=== PATIENT | female | born 1975 | race Caucasian/White ===

== ENCOUNTER 2017-11-01 17:52 | Inpatient (IN) | payer MEDICAID ==
[~2017-11-01] VITALS: Ht 167.6 cm; Wt 73.6 kg
[~2017-11-01 17:52] MED LIST: HUMIBIDDM PO; OSEL75 PO
[2017-11-01] MEDS ORDERED: ACETAMINOPHEN 325 MG TAB PO PRN (19:15)
[2017-11-01] MEDS ORDERED: MAGNESIUM HYDROXIDE SUSP 30 ML CUP PO PRN (19:15)
[2017-11-01] MEDS ORDERED: ONDANSETRON HCL 4 MG/2 ML VIAL IVP PRN (19:15)
[2017-11-01] MEDS ORDERED: SENNOSIDES 8.6 MG TAB PO PRN (19:15)
[2017-11-01] MEDS ORDERED: RESP: ALBUTEROL 2.5 MG/IPRATROPIUM 0.5 MG NEB (PRN) NEB (19:15)
[2017-11-01] MEDS ORDERED: SODIUM CHLORIDE 0.9% FLUSH 10 ML FLUSH IV FLUSH PRN (19:15)
[2017-11-01] MEDS ORDERED: ACETAMINOPHEN/HYDROcodone 325 MG/5 MG TAB PO PRN (19:15)
[2017-11-01] MEDS ORDERED: LACTULOSE SYRUP 20 GM/30 ML CUP PO PRN (19:15)
[2017-11-01] MEDS ORDERED: MORPHINE SULFATE 2 MG/ML INJ IV PUSH PRN (19:15)
[2017-11-01] MEDS ORDERED: BISACODYL 10 MG SUPP RECTAL PRN (19:15)
[2017-11-01] MEDS ORDERED: DEXTROMETHORPHAN GUAIFENESIN PO PRN (19:30)
[2017-11-01 20:00] VITALS: BP 137/86; PULSE 89; RESP 18; TEMP 99; O2SAT 96
[2017-11-01] MEDS: DOCUSATE SODIUM 50 MG/SENNA 8.6 MG TAB PO SCH (21:58)
[2017-11-01] MEDS: SODIUM CHLORIDE 0.9% FLUSH 10 ML FLUSH IV FLUSH SCH (21:58)
[2017-11-01] MEDS: SODIUM CHLOR 0.9% 1000 ML INJ 1,000 ML IV SCH (22:00)
--- NOTE | 2017-11-01 22:38 | HHI.HP ---
HPI Service [facility] Primary Care Physician Christina Lee MD Admission Diagnosis Pneumonia; influenza a infection 10/26/17 . Diagnoses: (1) Pneumonia Chief Complaint: cough, shortness of breath, fatigue Travel History International Travel<30 Days: No Contact w/Intl Traveler <30 Da: No History of Present Illness Mrs. Rivero is a pleasant 41 y/o female with a history of right breast cancer treated with mastectomy, chemotherapy, and radiation who presented to the ED in [place] for evaluation of persistent cough and shortness of breath following Influenza A infection diagnosed 10/26. Chest xray showed possible left lower lung pneumonia and the patient was transferred to [facility] for further medical management. The patient is seen in her hospital room. She reports persistent cough that is worse with movement and conversation. The cough is worse at night causing patient to be unable to sleep and she reports exhaustion and fatigue as a result. She states that she feels short of breath with respirations feeling very "shallow". She reports tactile fever, warm feelings alternating with cold , and diaphoresis. She denies chest pain, nausea, vomiting, or diarrhea. She completed course of Tamiflu with no improvement in her flu symptoms. 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 Review of Systems Except as stated in HPI: all other systems reviewed are Neg Past Family Social History Past Medical History Right breast cancer s/p radiation/chemo/mastectomy 2015/2016 Hypertension Anemia requiring iron supplement . Past Surgical History Right breast lumpectomy 2000 Right breast mastectomy 2016 Right breast reconstruction 02/2017 C Section x 3 BTL D and C . Reported Medications . Reported Meds & Active Scripts Active Mucinex DM (Dextromethorphan-Guaifenesin) 30-600 Mg Tab 1 Tab PO BID PRN Tamiflu (Oseltamivir Phosphate) 75 Mg Cap 75 Mg PO BID 5 Days Allergies: Coded Allergies: No Known Allergies (Unverified , 10/26/17) Family History Mother with thyroid disease Family history of DM . Social History Tobacco: denies ever smoking Alcohol: denies Illicit Drugs: denies . Physical Exam Vital Signs Vital Signs Date Time Temp Pulse Resp B/P (MAP) Pulse Ox O2 Delivery O2 Flow Rate FiO2 11/01/17 20:00 99.0 89 18 137/86 (103) 96 Physical Exam GENERAL: Well-nourished, well-developed patient in no acute distress. INTEGUMENTARY: Warm and dry. HEAD: Normocephalic. EYES: No scleral icterus. No injection or drainage. NECK: Supple, trachea midline. No JVD. CARDIOVASCULAR: Regular rate and rhythm without murmurs, gallops, or rubs. Extremities without cyanosis, or edema. RESPIRATORY: Breath sounds with left lower lobe crackles and fine, few crackles also noted on left. No accessory muscle use. GASTROINTESTINAL: Abdomen soft, non-tender, nondistended. MUSCULOSKELETAL: Muscle strength equal bilaterally. No obvious deformities. NEUROLOGICAL: Awake, alert, and oriented x 3. Non-focal. Laboratory Laboratory Tests Test 11/01/17 16:26 11/01/17 17:32 White Blood Count 15.5 TH/MM3 Red Blood Count 3.66 MIL/MM3 Hemoglobin 9.8 GM/DL Hematocrit 30.5 % Mean Corpuscular Volume 83.3 FL Mean Corpuscular Hemoglobin 26.8 PG Mean Corpuscular Hemoglobin Concent 32.1 % Red Cell Distribution Width 14.7 % Platelet Count 326 TH/MM3 Mean Platelet Volume 10.1 FL Immature Granulocyte % (Auto) 0.6 % Neutrophils (%) (Auto) 78.6 % Lymphocytes (%) (Auto) 12.7 % Monocytes (%) (Auto) 7.5 % Eosinophils (%) (Auto) 0.5 % Basophils (%) (Auto) 0.1 % Immature Granulocyte # (Auto) 0.1 TH/MM3 Neutrophils # (Auto) 12.2 TH/MM3 Lymphocytes # (Auto) 2.0 TH/MM3 Monocytes # (Auto) 1.2 TH/MM3 Eosinophils # (Auto) 0.1 TH/MM3 Basophils # (Auto) 0.0 TH/MM3 CBC Comment DIFF FINAL Differential Comment Blood Urea Nitrogen 5 MG/DL Creatinine 0.60 MG/DL Random Glucose 125 MG/DL Total Protein 8.1 GM/DL Albumin 3.1 GM/DL Calcium Level 8.8 MG/DL Alkaline Phosphatase 115 U/L Aspartate Amino Transf (AST/SGOT) 41 U/L Alanine Aminotransferase (ALT/SGPT) 72 U/L Total Bilirubin 0.3 MG/DL Sodium Level 138 MEQ/L Potassium Level 4.0 MEQ/L Chloride Level 102 MEQ/L Carbon Dioxide Level 30.0 MEQ/L Anion Gap 6 MEQ/L Estimat Glomerular Filtration Rate 110 ML/MIN . Imaging Last Impressions Chest X-Ray 11/01/17 1507 Signed Impressions: Service Date/Time: Wednesday, November 01, 2017 16:29 - CONCLUSION: Mild inferior left lung base atelectasis versus consolidation. Galindo Johnson MD . Caprini VTE Risk Assessment Caprini VTE Risk Assessment: Mod/High Risk (score >= 2) Caprini Risk Assessment Model Point Value = 1 Point Value = 2 Point Value = 3 Point Value = 5 Age 41-60 Minor surgery BMI > 25 kg/m2 Swollen legs Varicose veins or History of unexplained or recurrent spontaneous Oral contraceptives or hormone replacement Sepsis (< 1 month) Serious lung disease, including pneumonia (< 1 month) Abnormal pulmonary function Acute myocardial infarction Congestive heart failure (< 1 month) History of inflammatory bowel disease Medical patient at bed rest Age 61-74 Arthroscopic surgery Major open surgery (> 45 min) Laparoscopic surgery (> 45 min) Malignancy Confined to bed (> 72 hours) Immobilizing plaster cast Central venous access Age >= 75 History of VTE Family history of VTE Factor V Leiden Prothrombin [id number] Lupus anticoagulant Anticardiolipin antibodies Elevated serum homocysteine Heparin-induced thrombocytopenia Other congenital or acquired thrombophilia Stroke (< 1 month) Elective arthroplasty Hip, pelvis, or leg fracture Acute spinal cord injury (< 1 month) Prophylaxis Regimen Total Risk Factor Score Risk Level Prophylaxis Regimen 0-1 Low Early ambulation 2 Moderate Order ONE of the following: *Sequential Compression Device (SCD) *Heparin 5000 units SQ BID 3-4 Higher Order ONE of the following medications: *Heparin 5000 units SQ TID *Enoxaparin/Lovenox 40 mg SQ daily (WT < 150 kg, CrCl > 30 mL/min) *Enoxaparin/Lovenox 30 mg SQ daily (WT < 150 kg, CrCl > 10-29 mL/min) *Enoxaparin/Lovenox 30 mg SQ BID (WT < 150 kg, CrCl > 30 mL/min) AND/OR *Sequential Compression Device (SCD) 5 or more Highest Order ONE of the following medications: *Heparin 5000 units SQ TID (Preferred with Epidurals) *Enoxaparin/Lovenox 40 mg SQ daily (WT < 150 kg, CrCl > 30 mL/min) *Enoxaparin/Lovenox 30 mg SQ daily (WT < 150 kg, CrCl > 10-29 mL/min) *Enoxaparin/Lovenox 30 mg SQ BID (WT < 150 kg, CrCl > 30 mL/min) AND *Sequential Compression Device (SCD) Assessment and Plan Problem List: (1) Pneumonia ICD Code: J18.9 - Pneumonia, unspecified organism Assessment and Plan Left lower lobe pneumonia - Exam and chest x-ray c/w left lower lobe pneumonia - Antibiotics: IV Rocephin and Azithromycin - Duonebs q6h ATC and q4h PRN sob/wheezing - Incentive Spirometry - IVF hydration with NS at 100 cc/hr - Robitussin DM PRN Anemia with history of Iron Deficiency - Hgb 9.8, HCT 30.5 on admission - check iron profile - recheck cbc in a.m. and follow results Insomnia - try Ambien 5 mg p.o. at bedtime - Will order PRN if effective in relieving symptoms DVT prophylaxis - Heparin 5000 units subq q8h . Discussed Condition With Dr. Bhatia, RN, and patient . Physician Certification 2 Midnight Certification Type: Admission for Inpatient Services Order for Inpatient Services The services are ordered in accordance with Medicare regulations or non- Medicare payer requirements, as applicable. In the case of services not specified as inpatient-only, they are appropriately provided as inpatient services in accordance with the 2-midnight benchmark. Estimated LOS (days): 2 days is the estimated time the patient will need to remain in the hospital, assuming treatment plan goals are met and no additional complications. Post-Hospital Plan: Home Problem Qualifiers (1) Pneumonia: Qualified Codes: J11.00 - Influenza due to unidentified influenza virus with unspecified type of pneumonia Amber Bower Nov 01, 2017 22:38
[2017-11-01] MEDS ORDERED: ZOLPIDEM TARTRATE 5 MG TAB PO ONE (23:00)
[2017-11-01] MEDS: cefTRIAXone INJ 1,000 MG in SODIUM CHLORIDE 0.9% INJ 100 ML IV SCH (23:14)
[2017-11-01 23:46] VITALS: PULSE 74
[2017-11-02] VITALS (11 sets, daily range): BP systolic 130–149; BP diastolic 70–81; PULSE 71–107; RESP 17–20; TEMP 98.2–98.7; O2SAT 97–99
[2017-11-02] MEDS: AZITHROMYCIN INJ 500 MG in SODIUM CHLOR 0.9% 250 ML INJ 250 ML IV SCH ×2
[2017-11-02] MEDS ORDERED: SODIUM CHLORIDE 0.9% FLUSH 10 ML FLUSH IVF PRN (00:45)
[2017-11-02] MEDS: RESP: ALBUTEROL 2.5 MG/IPRATROPIUM 0.5 MG NEB (SCH) INH ×4 (04:47→20:20)
[2017-11-02 07:40] LABS: AUTOMATED NEUTROPHIL # 9.7 TH/MM3 (1.8-7.7); BASOPHIL % 0.4 % (0.0-2.0); HEMATOCRIT 29.5 % (35.0-46.0); LYMPH % 5.9 % (9.0-44.0); LYMPHOCYTE # 0.6 TH/MM3 (1.0-4.8); MEAN CELL VOLUME 81.1 FL (80.0-100.0); MEAN CORPUSCULAR HEMOGLOBIN 27.3 PG (27.0-34.0); MEAN CORPUSCULAR HGB CONC 33.7 % (32.0-36.0); MEAN PLATELET VOLUME 8.6 FL (7.0-11.0); MONO % 3.3 % (0.0-8.0); MONOCYTE # 0.4 TH/MM3 (0-0.9); NEUT % 90.4 % (16.0-70.0); PLATELET COUNT 290 TH/MM3 (150-450); RED BLOOD COUNT 3.64 MIL/MM3 (4.00-5.30); WHITE BLOOD COUNT 10.8 TH/MM3 (4.0-11.0)
[2017-11-02 07:47] LABS: ALBUMIN 2.8 GM/DL (3.4-5.0); AST (GOT) 41 U/L (15-37); BICARBONATE 26.7 MEQ/L (21.0-32.0); BLOOD UREA NITROGEN 8 MG/DL (7-18); CALCIUM 8.9 MG/DL (8.5-10.1); CHLORIDE 103 MEQ/L (98-107); CREATININE 0.48 MG/DL (0.50-1.00); GLOMERULAR FILTRATION RATE 142 ML/MIN (>89); GLUCOSE,RANDOM 145 MG/DL (74-106); SODIUM (NA) 137 MEQ/L (136-145)
[2017-11-02 07:48] LABS: ALT (GPT) 72 U/L (10-53)
[2017-11-02 07:49] LABS: IRON (FE) 47 MCG/DL (50-170); TOTAL BILIRUBIN ADULT 0.2 MG/DL (0.2-1.0); TOTAL IRON BINDING CAPACITY 235 MCG/DL (250-450); TOTAL PROTEIN 7.7 GM/DL (6.4-8.2)
[2017-11-02 07:50] LABS: ALKALINE PHOSPHATASE 107 U/L (45-117)
[2017-11-02] MEDS: DOCUSATE SODIUM 50 MG/SENNA 8.6 MG TAB PO SCH ×2 (08:13→21:00)
[2017-11-02] MEDS: SODIUM CHLORIDE 0.9% FLUSH 10 ML FLUSH IV FLUSH SCH ×2 (08:14→21:00)
--- NOTE | 2017-11-02 09:58 | HHI.PR ---
Subjective Remarks This is a pleasant 41 y/o Female with history of Right breast cancer treated with mastectomy, chemotherapy and radiation, who came to ER at [place] with cough and SOB, following Influenza A infection diagnosed 10/26/17, CXR showed possible left lower lung pneumonia, she has Hypertension, Anemia requiring iron supplement. stable in her bedroom, continue present care. improving condition. Objective Vital Signs Date Time Temp Pulse Resp B/P (MAP) Pulse Ox O2 Delivery O2 Flow Rate FiO2 11/02/17 09:17 98.4 91 20 149/81 (103) 97 11/02/17 04:00 98.3 81 17 137/79 (98) 97 11/02/17 03:46 71 11/02/17 00:00 98.3 86 18 134/76 (95) 97 11/01/17 23:46 74 11/01/17 20:00 99.0 89 18 137/86 (103) 96 I/O 11/01/17 11/01/17 11/01/17 11/02/17 11/02/17 11/02/17 07:00 15:00 23:00 07:00 15:00 23:00 Intake Total 240 ml Balance 240 ml Intake Oral 240 ml # Voids 3 Result Diagram: 11/02/17 0615 11/02/17 0655 Imaging CXR Left lung base atelectasis or consolidation Procedures None Other Results Laboratory Tests Test 11/02/17 06:15 11/02/17 06:55 White Blood Count 10.8 TH/MM3 Red Blood Count 3.64 MIL/MM3 Hemoglobin 10.0 GM/DL Hematocrit 29.5 % Mean Corpuscular Volume 81.1 FL Mean Corpuscular Hemoglobin 27.3 PG Mean Corpuscular Hemoglobin Concent 33.7 % Red Cell Distribution Width 15.0 % Platelet Count 290 TH/MM3 Mean Platelet Volume 8.6 FL Neutrophils (%) (Auto) 90.4 % Lymphocytes (%) (Auto) 5.9 % Monocytes (%) (Auto) 3.3 % Eosinophils (%) (Auto) 0.0 % Basophils (%) (Auto) 0.4 % Neutrophils # (Auto) 9.7 TH/MM3 Lymphocytes # (Auto) 0.6 TH/MM3 Monocytes # (Auto) 0.4 TH/MM3 Eosinophils # (Auto) 0.0 TH/MM3 Basophils # (Auto) 0.0 TH/MM3 CBC Comment DIFF FINAL Differential Comment Blood Urea Nitrogen 8 MG/DL Creatinine 0.48 MG/DL Random Glucose 145 MG/DL Total Protein 7.7 GM/DL Albumin 2.8 GM/DL Calcium Level 8.9 MG/DL Alkaline Phosphatase 107 U/L Aspartate Amino Transf (AST/SGOT) 41 U/L Alanine Aminotransferase (ALT/SGPT) 72 U/L Total Bilirubin 0.2 MG/DL Sodium Level 137 MEQ/L Potassium Level 4.2 MEQ/L Chloride Level 103 MEQ/L Carbon Dioxide Level 26.7 MEQ/L Anion Gap 7 MEQ/L Estimat Glomerular Filtration Rate 142 ML/MIN Iron Level 47 MCG/DL Total Iron Binding Capacity 235 MCG/DL Percent Iron Saturation 20.0 % Objective Remarks GENERAL: Well-nourished, well-developed patient in no acute distress. INTEGUMENTARY: Warm and dry. HEAD: Normocephalic. EYES: No scleral icterus. No injection or drainage. NECK: Supple, trachea midline. No JVD. CARDIOVASCULAR: Regular rate and rhythm without murmurs, gallops, or rubs. Extremities without cyanosis, or edema. RESPIRATORY: Breath sounds with left lower lobe crackles and fine, few crackles also noted on left. No accessory muscle use. GASTROINTESTINAL: Abdomen soft, non-tender, nondistended. MUSCULOSKELETAL: Muscle strength equal bilaterally. No obvious deformities. NEUROLOGICAL: Awake, alert, and oriented x 3. Non-focal. Medications and IVs Current Medications Medications (Trade) Dose Ordered Sig/Kirill Route Start Time Stop Time Status Last Admin Sodium Chloride 1,000 ml @ 100 mls/hr Q10H IV 11/01/17 19:10 11/01/17 22:00 (NS Flush) 2 ml UNSCH PRN IV FLUSH 11/01/17 19:15 (NS Flush) 2 ml BID IV FLUSH 11/01/17 21:00 11/01/17 21:58 (Zofran Inj) 4 mg Q6H PRN IVP 11/01/17 19:15 (Tylenol) 650 mg Q6H PRN PO 11/01/17 19:15 (Deloit 5-325 Mg) 1 tab Q4H PRN PO 11/01/17 19:15 (Morphine Inj) 2 mg Q3H PRN IV PUSH 11/01/17 19:15 (Sherine-Colace) 1 tab BID PO 11/01/17 21:00 11/02/17 08:13 (Milk Of Magnesia Liq) 30 ml Q12H PRN PO 11/01/17 19:15 (Senokot) 17.2 mg Q12H PRN PO 11/01/17 19:15 (Dulcolax Supp) 10 mg DAILY PRN RECTAL 11/01/17 19:15 (Lactulose Liq) 30 ml DAILY PRN PO 11/01/17 19:15 (Duoneb Neb) 1 ampule Q4HR NEB PRN NEB 11/01/17 19:15 Patient Own Medication PT OWN MED: (Dextromethorphan-Gua... BID PRN PO 11/01/17 19:30 Future Hold Ceftriaxone Sodium 1000 mg/ Sodium Chloride 100 ml @ 200 mls/hr Q24H IV 11/01/17 23:00 11/01/17 23:14 Azithromycin 500 mg/Sodium Chloride 250 ml @ 250 mls/hr Q24H IV 11/01/17 23:00 11/02/17 00:00 (Duoneb Neb) 1 ampule Q6HR NEB INH 11/02/17 04:00 11/02/17 04:47 (Heparin Central Flush) 500 units UNSCH IV FLUSH 11/02/17 00:45 (NS Flush) 5 ml UNSCH PRN IVF 11/02/17 00:45 (Heparin Central Flush) 250 units UNSCH PRN IV FLUSH 11/02/17 00:45 11/02/17 06:18 A/P Assessment and Plan (1) Pneumonia ICD Code: J18.9 - Pneumonia, unspecified organism Assessment and Plan Left lower lobe pneumonia - Exam and chest x-ray c/w left lower lobe pneumonia - Antibiotics: IV Rocephin and Azithromycin - Duonebs q6h ATC and q4h PRN sob/wheezing - Incentive Spirometry - IVF hydration with NS at 100 cc/hr - Robitussin DM PRN Anemia with history of Iron Deficiency - Hgb 9.8, HCT 30.5 on admission Insomnia - try Ambien 5 mg p.o. at bedtime - Will order PRN if effective in relieving symptoms DVT prophylaxis - Heparin 5000 units subq q8h . Discussed Condition With patient and nurse continue present care. Discharge Planning Expected by tomorrow. Massimo Fernandez MD Nov 02, 2017 09:58
[2017-11-02] MEDS ORDERED: LEVOFLOXACIN 750 MG PREMIX INJ 150 ML IV SCH ×2 (20:00)
[2017-11-02] MEDS: SODIUM CHLOR 0.9% 1000 ML INJ 1,000 ML IV SCH (21:50)
[2017-11-02] MEDS: cefTRIAXone INJ 1,000 MG in SODIUM CHLORIDE 0.9% INJ 100 ML IV SCH (23:34)
[2017-11-03] VITALS (7 sets, daily range): BP systolic 131–145; BP diastolic 73–97; PULSE 70–86; RESP 18–19; TEMP 97.4–98.5; O2SAT 95–99
[2017-11-03] MEDS: AZITHROMYCIN INJ 500 MG in SODIUM CHLOR 0.9% 250 ML INJ 250 ML IV SCH (00:22)
[2017-11-03] MEDS: SODIUM CHLOR 0.9% 1000 ML INJ 1,000 ML IV SCH ×3 (00:27→11:10)
[2017-11-03] MEDS: RESP: ALBUTEROL 2.5 MG/IPRATROPIUM 0.5 MG NEB (SCH) INH ×2 (03:44→09:14)
[2017-11-03] MEDS: SODIUM CHLORIDE 0.9% FLUSH 10 ML FLUSH IV FLUSH SCH (08:08)
[2017-11-03] MEDS: DOCUSATE SODIUM 50 MG/SENNA 8.6 MG TAB PO SCH (08:08)
--- NOTE | 2017-11-03 10:36 | RADRPT ---
EXAM DATE/TIME: 11/03/2017 10:07 [facility] COMPARISON: No previous studies available for comparison. INDICATIONS : Short of Breath MEDICAL HISTORY : Hypertension. Carcinoma, breast. SURGICAL HISTORY : Mastectomy, right. Port placement ENCOUNTER: Subsequent ACUITY: 3 days PAIN SCORE: 0/10 LOCATION: chest FINDINGS: PA and lateral views of the chest demonstrate left lower lobe infiltrate. Right lung relatively clear . Heart normal in size. Left-sided [id number]-[id number] catheter with tip in the SVC. Clips in the right axi lla. The cardiomediastinal contours are unremarkable. Osseous structures are intact. CONCLUSION: Left basilar infiltrate. Chase Robb MD on November 03, 2017 at 10:33 Board Certified Radiologist. This report was verified electronically.
[2017-11-03] MEDS ORDERED: LEVA750T9 PO (12:10)
--- NOTE | 2017-11-03 12:14 | HHI.PR ---
Subjective Remarks This is a pleasant 41 y/o Female with history of Right breast cancer treated with mastectomy, chemotherapy and radiation, who came to ER at [place] with cough and SOB, following Influenza A infection diagnosed 10/26/17, CXR showed possible left lower lung pneumonia, she has Hypertension, Anemia requiring iron supplement. stable in her bedroom, continue present care. improving condition. 11/03: Seen in her bedroom, new CXR taken and showing left lower lung infiltrate , but improving clinically will discharge home and follow as outpatient by PCP will continue Levaquin for 5 days. no nausea, vomit or diarrhea. Objective Vital Signs Date Time Temp Pulse Resp B/P (MAP) Pulse Ox O2 Delivery O2 Flow Rate FiO2 11/03/17 09:14 99 21 11/03/17 08:43 97.4 85 19 145/97 (113) 95 11/03/17 04:00 98.1 79 18 131/76 (94) 95 11/03/17 04:00 75 11/03/17 00:00 70 11/03/17 00:00 98.0 78 18 134/73 (93) 96 11/02/17 20:22 99 21 11/02/17 20:00 98.2 86 18 132/72 (92) 97 11/02/17 20:00 86 11/02/17 16:13 98.3 84 20 134/70 (91) 97 11/02/17 16:00 80 I/O 11/02/17 11/02/17 11/02/17 11/03/17 11/03/17 11/03/17 07:00 15:00 23:00 07:00 15:00 23:00 Intake Total 240 ml 720 ml 1880 ml Balance 240 ml 720 ml 1880 ml Intake Oral 240 ml 720 ml IV Total 1880 ml # Voids 3 4 4 # Bowel Movements 1 Result Diagram: 11/02/17 0615 11/02/17 0655 Imaging Last Impressions Chest X-Ray 11/03/17 0000 Signed Impressions: Service Date/Time: Friday, November 03, 2017 10:07 - CONCLUSION: Left basilar infiltrate. Chase Robb MD Procedures None Other Results Laboratory Tests Test 11/02/17 06:15 11/02/17 06:55 White Blood Count 10.8 TH/MM3 Red Blood Count 3.64 MIL/MM3 Hemoglobin 10.0 GM/DL Hematocrit 29.5 % Mean Corpuscular Volume 81.1 FL Mean Corpuscular Hemoglobin 27.3 PG Mean Corpuscular Hemoglobin Concent 33.7 % Red Cell Distribution Width 15.0 % Platelet Count 290 TH/MM3 Mean Platelet Volume 8.6 FL Neutrophils (%) (Auto) 90.4 % Lymphocytes (%) (Auto) 5.9 % Monocytes (%) (Auto) 3.3 % Eosinophils (%) (Auto) 0.0 % Basophils (%) (Auto) 0.4 % Neutrophils # (Auto) 9.7 TH/MM3 Lymphocytes # (Auto) 0.6 TH/MM3 Monocytes # (Auto) 0.4 TH/MM3 Eosinophils # (Auto) 0.0 TH/MM3 Basophils # (Auto) 0.0 TH/MM3 CBC Comment DIFF FINAL Differential Comment Blood Urea Nitrogen 8 MG/DL Creatinine 0.48 MG/DL Random Glucose 145 MG/DL Total Protein 7.7 GM/DL Albumin 2.8 GM/DL Calcium Level 8.9 MG/DL Alkaline Phosphatase 107 U/L Aspartate Amino Transf (AST/SGOT) 41 U/L Alanine Aminotransferase (ALT/SGPT) 72 U/L Total Bilirubin 0.2 MG/DL Sodium Level 137 MEQ/L Potassium Level 4.2 MEQ/L Chloride Level 103 MEQ/L Carbon Dioxide Level 26.7 MEQ/L Anion Gap 7 MEQ/L Estimat Glomerular Filtration Rate 142 ML/MIN Iron Level 47 MCG/DL Total Iron Binding Capacity 235 MCG/DL Percent Iron Saturation 20.0 % Objective Remarks GENERAL: Well-nourished, well-developed patient in no acute distress. INTEGUMENTARY: Warm and dry. HEAD: Normocephalic. EYES: No scleral icterus. No injection or drainage. NECK: Supple, trachea midline. No JVD. CARDIOVASCULAR: Regular rate and rhythm without murmurs, gallops, or rubs. Extremities without cyanosis, or edema. RESPIRATORY: Breath sounds clear to auscultation bilateral, no wheezing or crackles. GASTROINTESTINAL: Abdomen soft, non-tender, nondistended. MUSCULOSKELETAL: Muscle strength equal bilaterally. No obvious deformities. NEUROLOGICAL: Awake, alert, and oriented x 3. Non-focal. Medications and IVs Current Medications Medications (Trade) Dose Ordered Sig/Kirill Route Start Time Stop Time Status Last Admin Sodium Chloride 1,000 ml @ 100 mls/hr Q10H IV 11/01/17 19:10 11/03/17 08:08 (NS Flush) 2 ml UNSCH PRN IV FLUSH 11/01/17 19:15 (NS Flush) 2 ml BID IV FLUSH 11/01/17 21:00 11/03/17 08:08 (Zofran Inj) 4 mg Q6H PRN IVP 11/01/17 19:15 (Tylenol) 650 mg Q6H PRN PO 11/01/17 19:15 (Inman 5-325 Mg) 1 tab Q4H PRN PO 11/01/17 19:15 11/03/17 09:43 (Morphine Inj) 2 mg Q3H PRN IV PUSH 11/01/17 19:15 (Sherine-Colace) 1 tab BID PO 11/01/17 21:00 11/02/17 08:13 (Milk Of Magnesia Liq) 30 ml Q12H PRN PO 11/01/17 19:15 (Senokot) 17.2 mg Q12H PRN PO 11/01/17 19:15 (Dulcolax Supp) 10 mg DAILY PRN RECTAL 11/01/17 19:15 (Lactulose Liq) 30 ml DAILY PRN PO 11/01/17 19:15 (Duoneb Neb) 1 ampule Q4HR NEB PRN NEB 11/01/17 19:15 Patient Own Medication PT OWN MED: (Dextromethorphan-Gua... BID PRN PO 11/01/17 19:30 Future Hold Ceftriaxone Sodium 1000 mg/ Sodium Chloride 100 ml @ 200 mls/hr Q24H IV 11/01/17 23:00 11/02/17 23:34 Azithromycin 500 mg/Sodium Chloride 250 ml @ 250 mls/hr Q24H IV 11/01/17 23:00 11/03/17 00:22 (Duoneb Neb) 1 ampule Q6HR NEB INH 11/02/17 04:00 11/03/17 09:14 (Heparin Central Flush) 500 units UNSCH IV FLUSH 11/02/17 00:45 (NS Flush) 5 ml UNSCH PRN IVF 11/02/17 00:45 (Heparin Central Flush) 250 units UNSCH PRN IV FLUSH 11/02/17 00:45 1/28/18 06:18 A/P Assessment and Plan (1) Pneumonia ICD Code: J18.9 - Pneumonia, unspecified organism Assessment and Plan Left lower lobe pneumonia - Exam and chest x-ray c/w left lower lobe pneumonia - Antibiotics: IV Rocephin and Azithromycin - Duonebs q6h ATC and q4h PRN sob/wheezing - Incentive Spirometry - Improving clinically, new CXR has mild Left basilar infiltrate. to be discharged Home on Levaquin Anemia with history of Iron Deficiency - Hgb 9.8, HCT 30.5 on admission Insomnia - try Ambien 5 mg p.o. at bedtime - Will order PRN if effective in relieving symptoms DVT prophylaxis - Heparin 5000 units subq q8h . Discussed Condition With patient and nurse. Discharge Planning Discharge Home today. Massimo Fernandez MD Nov 03, 2017 12:14
--- NOTE | 2017-11-03 12:16 | HHI.DS ---
Discharge Summary Admission Date Nov 01, 2017 at 21:09 Discharge Date: Nov 03, 2017 Admitting Diagnosis Pneumonia; influenza a infection 10/26/17 . (1) Pneumonia ICD Code: J18.9 - Pneumonia, unspecified organism Diagnosis: Principal Procedures None Brief History - From Admission Mrs. Rivero is a pleasant 41 y/o female with a history of right breast cancer treated with mastectomy, chemotherapy, and radiation who presented to the ED in [place] for evaluation of persistent cough and shortness of breath following Influenza A infection diagnosed 10/26. Chest xray showed possible left lower lung pneumonia and the patient was transferred to [facility] for further medical management. The patient is seen in her hospital room. She reports persistent cough that is worse with movement and conversation. The cough is worse at night causing patient to be unable to sleep and she reports exhaustion and fatigue as a result. She states that she feels short of breath with respirations feeling very "shallow". She reports tactile fever, warm feelings alternating with cold , and diaphoresis. She denies chest pain, nausea, vomiting, or diarrhea. She completed course of Tamiflu with no improvement in her flu symptoms. 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 CBC/BMP: 11/02/17 0615 11/02/17 0655 Significant Findings Laboratory Tests Test 11/02/17 06:15 11/02/17 06:55 Red Blood Count 3.64 MIL/MM3 (4.00-5.30) Hemoglobin 10.0 GM/DL (11.6-15.3) Hematocrit 29.5 % (35.0-46.0) Neutrophils (%) (Auto) 90.4 % (16.0-70.0) Lymphocytes (%) (Auto) 5.9 % (9.0-44.0) Neutrophils # (Auto) 9.7 TH/MM3 (1.8-7.7) Lymphocytes # (Auto) 0.6 TH/MM3 (1.0-4.8) Creatinine 0.48 MG/DL (0.50-1.00) Random Glucose 145 MG/DL (74-106) Albumin 2.8 GM/DL (3.4-5.0) Aspartate Amino Transf (AST/SGOT) 41 U/L (15-37) Alanine Aminotransferase (ALT/SGPT) 72 U/L (10-53) Iron Level 47 MCG/DL (50-170) Total Iron Binding Capacity 235 MCG/DL (250-450) Imaging Last Impressions Chest X-Ray 11/03/17 0000 Signed Impressions: Service Date/Time: Friday, November 03, 2017 10:07 - CONCLUSION: Left basilar infiltrate. Chase Robb MD PE at Discharge GENERAL: Well-nourished, well-developed patient in no acute distress. INTEGUMENTARY: Warm and dry. HEAD: Normocephalic. EYES: No scleral icterus. No injection or drainage. NECK: Supple, trachea midline. No JVD. CARDIOVASCULAR: Regular rate and rhythm without murmurs, gallops, or rubs. Extremities without cyanosis, or edema. RESPIRATORY: Breath sounds clear to auscultation bilateral, no wheezing or crackles. GASTROINTESTINAL: Abdomen soft, non-tender, nondistended. MUSCULOSKELETAL: Muscle strength equal bilaterally. No obvious deformities. NEUROLOGICAL: Awake, alert, and oriented x 3. Non-focal. Hospital Course This is a pleasant 41 y/o Female with history of Right breast cancer treated with mastectomy, chemotherapy and radiation, who came to ER at [place] with cough and SOB, following Influenza A infection diagnosed 10/26/17, CXR showed possible left lower lung pneumonia, she has Hypertension, Anemia requiring iron supplement. stable in her bedroom, continue present care. improving condition. 11/03: Seen in her bedroom, new CXR taken and showing left lower lung infiltrate , but improving clinically will discharge home and follow as outpatient by PCP will continue Levaquin for 5 days. no nausea, vomit or diarrhea. Assessment and Plan (1) Pneumonia ICD Code: J18.9 - Pneumonia, unspecified organism Assessment and Plan Left lower lobe pneumonia - Exam and chest x-ray c/w left lower lobe pneumonia - Antibiotics: IV Rocephin and Azithromycin - Duonebs q6h ATC and q4h PRN sob/wheezing - Incentive Spirometry - Improving clinically, new CXR has mild Left basilar infiltrate. to be discharged Home on Levaquin Anemia with history of Iron Deficiency - Hgb 9.8, HCT 30.5 on admission Insomnia - try Ambien 5 mg p.o. at bedtime - Will order PRN if effective in relieving symptoms DVT prophylaxis - Heparin 5000 units subq q8h . Discussed Condition With patient and nurse. Discharge Planning Discharge Home today. Pt Condition on Discharge: Good Discharge Disposition: Discharge Home Discharge Time: <= 30 minutes Discharge Instructions DIET: Follow Instructions for: As Tolerated, No Restrictions Activities you can perform: Regular-No Restrictions Massimo Fernandez MD Nov 03, 2017 12:16
== END 2017-11-03 14:55 | disposition home or self-care (01) | DRG 195 ==
LOC: NEDDLT 17:52 → N04B 21:09
PROVIDERS: ADMIT Internal Medicine; ATTEND Internal Medicine
DX: J18.9 Pneumonia, unspecified organism (principal); I10 Essential (primary) hypertension; D50.9 Iron deficiency anemia, unspecified; G47.00 Insomnia, unspecified; Z85.3 Personal history of malignant neoplasm of breast; Z92.3 Personal history of irradiation; Z92.21 Personal history of antineoplastic chemotherapy
CPT/HCPCS: 71045; 71046; 80053; 83540; 83550; 83605; 85025; 87040; 87081; 87804; 87880; 94150; 94640; 94664; 96361; 96365; 96375; J0456; J0696; J1642; J1956; J2930; J7030; J7050